=== PATIENT | female | born 1940 ===

== ENCOUNTER 2016-06-04 08:04 | Day surgery (SDC) | payer OTHER ==
[2016-06-04 08:34] VITALS: BMI 29.2
[2016-06-04 08:50] VITALS: RESP 16
[2016-06-04] MEDS ORDERED: Propofol 10 mg/ml Inj (20 ML) ONE (09:53)
[2016-06-04 10:13] VITALS: O2SAT 100
[2016-06-04 11:44] VITALS: BP 118/76; PULSE 61; TEMP 97.2
== END 2016-06-04 11:35 | disposition home or self-care (01) ==
LOC: C.ENDO 08:04
PROVIDERS: ATTEND Internal Medicine Gastroenterology
DX: Z12.11 Encounter for screening for malignant neoplasm of colon (principal); K57.30 Diverticulosis of large intestine without perforation or abscess without bleeding; D12.2 Benign neoplasm of ascending colon; D12.4 Benign neoplasm of descending colon; D12.3 Benign neoplasm of transverse colon; K64.1 Second degree hemorrhoids
CPT/HCPCS: 45380; 45385; 88305; J2704